=== PATIENT | male | born 1975 | race African-American/Black ===

== ENCOUNTER 2018-05-10 05:38 | Emergency (ER) | payer MEDICAID ==
[~2018-05-10] VITALS: Ht 165.1 cm; Wt 94.8 kg
[2018-05-10 05:53] VITALS: BP 157/96; Ht 165.1 cm; Wt 94.8 kg
== END 2018-05-10 06:59 | disposition home or self-care (01) ==
LOC: ED 05:38
DX: R21 Rash and other nonspecific skin eruption (principal); J45.909 Unspecified asthma, uncomplicated; Z88.0 Allergy status to penicillin